=== PATIENT | female | born 1950 | race Asian ===

== ENCOUNTER 2017-05-30 07:43 | Day surgery (SDC) | payer OTHER ==
[2017-05-30] MEDS ORDERED: MIDAZOLAM 1 MG/ML 2 ML INJ (10:30)
[2017-05-30] MEDS ORDERED: FENTAnyl 50 MCG/ML VIAL (10:30)
== END 2017-05-30 12:21 | disposition home or self-care (01) ==
LOC: GIL 07:43
DX: Z12.11 Encounter for screening for malignant neoplasm of colon (principal); K64.8 Other hemorrhoids
CPT/HCPCS: 45378